=== PATIENT | male | born 1965 | race Caucasian/White ===

== ENCOUNTER → 2021-11-07 | Outpatient (CLI) | payer OTHER ==
[~2021-11-07] MED LIST: FENTANYL CITRATE/PF 100MCG/2 ML INJ ONE; HEPARIN SOD (PORCINE) 1000 UNIT/ML SDV ONE; LIDOCAINE HCL 1% LOCAL INJ 20 ML VIAL ONE; MIDAZOLAM HCL 2 MG/2 ML VIAL ONE; SODIUM CHLORIDE 0.9% 250ML 250 ML ONE; SODIUM CHLORIDE 0.9% 500ML 500 ML ONE
[2021-11-07 11:39] LABS: HEMOGLOBIN 15.7 g/dL (14.0-18.0)
[2021-11-07 11:53] LABS: INR 0.87; PROTHROMBIN TIME 12.7 seconds (11.9-14.5)
[2021-11-07 11:54] LABS: PARTIAL THROMBOPLASTIN TIME 30.4 seconds (23.8-35.5)
== END ==
LOC: DX 10:58
PROVIDERS: ATTEND Internal Medicine Hematology & Oncology
DX: C15.5 Malignant neoplasm of lower third of esophagus (principal)
CPT/HCPCS: 0223U; 36415 ×2; 36561; 76937; 77001; 85014; 85049; 85610; 85730; C1769; C1788; J1644; J2001; J2250; J3010; J7040; J7050; 99152; 99153